=== PATIENT | male | born 1955 | race Caucasian/White ===

== ENCOUNTER 2018-11-16 12:27 | Inpatient (IN) | payer BC ==
--- NOTE | 2018-11-12 16:11 | HP ---
AMENDED REPORT TO CORRECT ACCOUNT CC: Dr. Abbott; Dr. Liza Thomas; Dr. Mao * PREOPERATIVE HISTORY AND PHYSICAL: ACTUAL DATE OF ADMISSION: 11/16/18 DATE OF ADMISSION/SURGERY: 11/12/18 This patient is scheduled for AA admission by Dr. Drummond on Thursday, . ATTENDING SURGEON: Dr. Bogdan Drummond.* (DICTATED BY AVINASH LEARY NP) CHIEF COMPLAINT: Enlarged spleen. HISTORY OF PRESENT ILLNESS: The patient is a 63-year-old male recently evaluated by Dr. Drummond for splenectomy. One year ago, he was noted to have mild leukopenia and thrombocytopenia and was referred to [facility] and had a bone marrow biopsy which was normal. On routine followup blood work this year, he was found to have worsening counts with white blood cell count of 1.0 and was referred to [facility] again by Dr. Abbott who was his primary care provider and the physician's information assistant at [facility], [place], noted a palpable spleen. A CT of the abdomen and pelvis revealed splenomegaly with no lymphadenopathy. He denies any abdominal pain or fevers or chills or fatigue. His weight has been stable and he denies night sweats. Splenectomy has been advised by Dr. Thomas as diagnostic and therapeutic. Dr. Drummond examined the patient and notes a nontender palpable spleen 6 to 8 cm below the costal margin. Dr. Drummond discussed the findings with the patient and the recommendation for laparoscopic possible open splenectomy. Dr. Drummond discussed the nature of the surgical procedure, the relevant risks, benefits, and alternatives and reviewed the relevant anatomy. Today, I reviewed the typical postoperative care and recovery. The patient has had a chance to ask questions and stated that he understands the information and is satisfied with the answers given to his questions. He will sign surgical consent on the day of surgery. PAST MEDICAL HISTORY: Significant for neutropenia and thrombocytopenia; splenomegaly; hypertension; and hyperlipidemia. PAST SURGICAL HISTORY: Limited to bone marrow biopsies. MEDICATIONS: 1. Atorvastatin 20 mg p.o. daily. 2. Quinapril 40 mg p.o. daily. 3. Hydrochlorothiazide 12.5 mg p.o. daily. 4. Vitamin D3 1000 units daily. 5. Vitamin B complex 1 tablet daily. ALLERGIES: Fish causes anaphylaxis. FAMILY HISTORY: No known anesthesia complications, bleeding tendencies, or clotting disorders. Father due to Alzheimer's disease. Mother due to heart condition. SOCIAL HISTORY: He is and self employed in construction; he has never been a smoker. He occasionally consumes alcohol and denies the use of other substances. REVIEW OF SYSTEMS: Constitutional: No fevers, chills, night sweats, excessive fatigue, or weight loss. Endocrine: No diabetes or thyroid disease. Hematologic : No easy bruising or bleeding. No history of blood transfusions. Respiratory : No dyspnea on exertion. No chronic cough. Cardiovascular: No anginal chest pain or palpitations. Gastrointestinal: No nausea, vomiting, diarrhea, GI bleeding, or constipation. No change in bowel habits. Genitourinary: No dysuria. Musculoskeletal: No chronic back or joint pain. Integumentary: No chronic rashes or skin changes. Neurologic: No headache or blurred vision. No areas of focal weakness or numbness. General: No history of deep vein thrombosis or pulmonary embolism. No previous anesthesia complications. He did have a MRSA infection of the left thigh and underwent incision and drainage and then hospitalization for intravenous antibiotics about 10 years ago in [place], and it was thought the infection was related to a spider bite. PHYSICAL EXAMINATION GENERAL SURVEY: The patient is a 63-year-old male, well developed, well nourished, in no acute distress. VITAL SIGNS: Height 74 inches, weight 193 pounds, body mass index 24.8. Blood pressure 140/72, pulse 76 and regular, respiratory rate 16, temperature 96.5 tympanic. HEENT: Benign. NECK: Supple. No cervical lymphadenopathy. No supraclavicular lymphadenopathy. LUNGS: Breath sounds bilaterally clear and equal. HEART: Regular rate and rhythm. No murmurs or rubs appreciated. ABDOMEN: Active bowel sounds. Soft and nondistended. No surgical scars. Palpable nontender spleen, 6 to 8 cm below the costal margin. No other palpable masses. No hepatomegaly. No ventral hernias. GENITALIA: Exam deferred. RECTAL: Exam deferred. EXTREMITIES: Warm without edema or skin ulceration. BACK: No CVA tenderness. NEUROLOGIC: Alert and oriented x3. Steady gait. SKIN: Warm, dry, intact. IMPRESSION: Neutropenic, splenomegaly. PLAN: AA admission to Dr. Drummond' service on 11/17/18, for laparoscopic possible open splenectomy. He completed preoperative immunization through [facility] and he will have preoperative splenic embolization with Dr. Mao on the day before surgery. AVINASH LEARY, [employer] SERVICE OFFICER [id number]/[facility] #: [id number] MADIHA
[~2018-11-16 12:27] MED LIST: ceFAZolin 1 GM ADVAN(*) 1 GM in NS 0.9% 50 ML* 50 ML IVPB ONE
[2018-11-16] MEDS ORDERED: Ondansetron INJ* 2 MG/ML VIAL ONE (13:11)
[2018-11-16] MEDS ORDERED: Scopolamine 1.5 mg* PATCH ONE (13:11)
[2018-11-16] MEDS ORDERED: LORazepam TAB(*) 1 MG ONE (13:12)
[2018-11-16] MEDS ORDERED: Naloxone* 0.4 MG/ML 1 ML VIAL ONE (13:49)
[2018-11-16] MEDS ORDERED: Heparin(*) 1000 UNIT/ML 10 ML VIAL CATH LAB IV ONE (13:49)
[2018-11-16] MEDS ORDERED: Flumazenil* 0.1 MG/ML 5 ML MDV ONE (13:49)
[2018-11-16] MEDS ORDERED: fentaNYL* 50 MCG/ML 2 ML VIAL (100 MCG VIAL) ONE ×2 (13:49→15:03)
[2018-11-16] MEDS ORDERED: Lidocaine 1% INJ* 10 MG/ML 30 ML SDV ONE (13:49)
[2018-11-16] MEDS ORDERED: Midazolam* 1 MG/ML 5 ML VIAL (5 MG) ONE (13:49)
[2018-11-16] MEDS ORDERED: Heparin 2 UNITS/ML IVPREMIX* 2,000 UNIT/1,000 ML BAG IV ONE (13:50)
[2018-11-16] MEDS ORDERED: Iohexol 350 (CONTRAST) 200 ML MDV IV ONE (14:15)
[2018-11-16] MEDS ORDERED: Naloxone* 0.4 MG/ML 1 ML VIAL IV PUSH PRN (15:22)
[2018-11-16] MEDS ORDERED: HYDROmorphone PCA* 20 MG/20 ML PCA.SYRING PCA SCH ×2 (15:30→18:38)
[2018-11-16] MEDS ORDERED: Ketorolac INJ* 30 MG/ML 1 ML VIAL ONE (15:52)
[2018-11-16] MEDS ORDERED: Acetaminophen TAB* 325 MG PO PRN (17:43)
[2018-11-16] MEDS ORDERED: Metoprolol Tartrate IV* 1 MG/ML 5 ML VIAL IV PRN (17:57)
[2018-11-16] MEDS: Lisinopril TAB* 10 MG PO SCH (18:17)
--- NOTE | 2018-11-16 18:36 | PN ---
Progress Note - Progress Note Date of Service: 11/16/18 SOAP: Subjective: Patient denies pain or nausea. Complains of "hunger pains" in his left abdomen. Objective: Selected Entries 11/16/18 11/16/18 11/16/18 18:00 18:01 18:15 Pulse Rate 71 Heart Rate 69 Respiratory 16 Rate Blood Pressure 181/101 (mmHg) Blood Pressure 111 Mean O2 Sat by Pulse 98 Oximetry NAD, AAO x 3 Abdomen is soft, NT Palpable lower spleen, mild tenderness with compression Right groin is soft, nontender Dressing is CDI 2+ pulses palpable at right MOLDING ENGINEER, pop and DPA Right leg neuromuscular function is grossly intact Assessment: 63 YOM status post abdominal arteriography and Gel Foam embolization of the splenic arteries in preparation for splenectomy tomorrow. Pain and nausea well controlled. Plan: 1. Standard Interventional Radiology post embolization regimen as ordered. 2. No bedrest necessary after successful deployment of percutaneous arterial closure device. 3. Regular diet. 4. Continue IVF, NS 0.9% 175 mL/hr overnight.
[2018-11-16] MEDS ORDERED: Buffered Lidocaine 1% SYRIN* 1 ML/SYRINGE INTRADERM ONE (23:25)
[2018-11-16] MEDS: NS 0.9% 1000 ML** 1,000 ML IV SCH (23:40)
[2018-11-17] MEDS: NS 0.9% 1000 ML** 1,000 ML IV SCH ×2 (05:16→12:18)
[2018-11-17] MEDS ORDERED: Famotidine IV* 10 MG/ML 2 ML (20 mg) IV ONE (06:00)
[2018-11-17] MEDS ORDERED: Dexamethasone TAB* 4 MG PO ONE (06:00)
[2018-11-17 07:41] LABS: Hematocrit 37 % (42-52); Hemoglobin 12.5 g/dl (14.0-18.0); Mean Corpuscular HGB Conc 34 g/dl (31-36); Mean Corpuscular Hemoglobin 27 pg (27-31); Mean Corpuscular Volume 79 fL (80-94); Mean Platelet Volume 8.5 fL (7.4-10.4); Platelet Count 144 10^3/ul (150-450); Red Blood Count 4.64 10^6/ul (4.00-5.40); Red Cell Distribution Width 16 % (10.5-15); White Blood Count 4.6 10^3/ul (3.5-10.8)
[2018-11-17 08:33] LABS: ABS Basophils 0 10^3/ul (0-0.2); ABS Eosinophils 0 10^3/ul (0-0.6); ABS Lymphocytes 0.3 10^3/ul (1.0-4.8); ABS Monocytes 1.8 10^3/ul (0-0.8); ABS Neutrophils 2.5 10^3/ul (1.5-7.7); ABS Nucleated RBC 0 10^3/ul; Eosinophil % 0 %; Large Platelets Present; Nucleated Red Blood Cells % 0.8
--- NOTE | 2018-11-17 09:12 | PN ---
Progress Note - Progress Note Date of Service: 11/17/18 SOAP: Subjective: Patient with 2/10 left upper abdominal pain. Episodes of nausea without emesis. Objective: Selected Entries 11/17/18 11/17/18 07:57 08:00 Temperature 98.2 F Temperature Oral Source Pulse Rate 68 Respiratory 14 Rate Blood Pressure 128/68 (mmHg) Blood Pressure 83 Mean O2 Sat by Pulse 100 Oximetry Patient on Room Yes Air NAD, AAO x 3 Abdomen is soft +Tender to palpation over spleen Right groin is soft, nontender Dressing is CDI 2+ right customs agent pulse Assessment: 63 YOM POD #1 GelFoam splenic artery embolization prior to planned splenectomy today. Plan: 1. Patient to OR with Dr. Drummond for splenectomy to be followed with surgical management. 2. No further IR specific follow up other than right groin check.
[2018-11-17] MEDS: Lisinopril TAB* 10 MG PO SCH (09:20)
[2018-11-17] MEDS ORDERED: Ondansetron ODT TAB* 4 MG ONE (12:24)
[2018-11-17] MEDS ORDERED: Famotidine IV* 10 MG/ML 2 ML (20 mg) ONE (12:24)
[2018-11-17] MEDS ORDERED: ceFAZolin 2 GM PREMIX in ORs 2 GM/50 ML BAG IVPB ONE (12:25)
[2018-11-17] MEDS ORDERED: Dexamethasone TAB* 4 MG ONE (12:25)
[2018-11-17] MEDS: Ondansetron TAB* 4 MG PO ONE (12:28)
[2018-11-17] MEDS ORDERED: Atracurium* 10 MG/ML 10 ML VIAL ONE (12:49)
[2018-11-17] MEDS ORDERED: fentaNYL* 50 MCG/ML 5 ML VIAL (250 MCG VIAL) ONE ×2 (12:49→14:03)
[2018-11-17] MEDS ORDERED: KETAMINE HCL* 50 MG/ML 10 ML VIAL ONE (12:50)
[2018-11-17] MEDS ORDERED: Midazolam* 1 MG/ML 5 ML VIAL (5 MG) ONE ×2 (12:50→14:03)
[2018-11-17] MEDS ORDERED: Ondansetron INJ* 2 MG/ML VIAL ONE (14:03)
[2018-11-17] MEDS ORDERED: Dexamethasone IV* 4 MG/ML 1 ML (4 MG) ONE (14:03)
[2018-11-17] MEDS ORDERED: Lidocaine 2% PF * 5 ML VIAL ONE (14:03)
[2018-11-17] MEDS ORDERED: Rocuronium* 10 MG/ML VIAL ONE (14:03)
[2018-11-17] MEDS ORDERED: Propofol* 10 MG/ML 20 ML BTL ONE (14:03)
[2018-11-17] MEDS ORDERED: Bupivacaine 0.25% W/EPI* 10 ML SDV ONE (14:04)
[2018-11-17] MEDS ORDERED: Bupivacaine 0.5% W/EPI SDV* 30 ML VIAL ONE (14:46)
[2018-11-17] MEDS ORDERED: fentaNYL* 50 MCG/ML 2 ML VIAL (100 MCG VIAL) IV PRN (15:25)
[2018-11-17] MEDS ORDERED: Ondansetron INJ* 2 MG/ML VIAL IV PRN (15:25)
[2018-11-17] MEDS ORDERED: HYDROmorphone INJ1* 1 MG/ML SYRINGE IV PRN (15:25)
[2018-11-17] MEDS ORDERED: Naloxone* 0.4 MG/ML 1 ML VIAL IV PRN (15:25)
--- NOTE | 2018-11-17 17:55 | BRIEFOPN ---
Brief Operative Note - Surgery Procedures: PREOP/POSTOP DX: SPLENOMEGALY PROC: LAPAROSCOPIC SPLENECTOMY WITH HAND ASSIST SURG: MECENAS ASSIST: IVAN; JOSÉ LUIS ANES: GET; TOAL EBL: <50ML IVF: 3.6 L CRYST SPEC: SPLEEN AND SPLENULES DRAINS: NONE COMPL: NONE COND: STABLE TO RR; EXTUBATED.
--- NOTE | 2018-11-17 20:43 | OP ---
AMENDED REPORT TO CORRECT ACCOUNT CC: Epifanio Abbott MD; Liza Thomas MD; Rajesh Mao MD * DATE OF OPERATION: 11/17/18 - ROOM #346 DATE OF : 57 SURGEON: Bogdan Drummond MD FAST FOOD DELIVERY DRIVER: Dr. Vazquez and Dr. Velazquez. ANESTHESIOLOGIST: Dr. Mathew ANESTHESIA: General endotracheal. PRE-OP DIAGNOSIS: Neutropenic splenomegaly. POST-OP DIAGNOSIS: Neutropenic splenomegaly. OPERATIVE PROCEDURE: Laparoscopic splenectomy. ESTIMATED BLOOD LOSS: Less than 50 mL. IV FLUIDS: 3.6 L of crystalloid. SPECIMENS: Spleen and splenules. DRAINS: None. COMPLICATIONS: None. COUNTS: The instrument, needle, and sponge counts were correct. DESCRIPTION OF PROCEDURE: The patient was brought to the operating room, placed on the table supine. Sequential compression devices were placed on both lower extremities. General anesthesia was administered. Woody catheter was placed. He was positioned and padded appropriately in a slight right decubitus using a beanbag and airplaning the left arm. He was prepped and draped in the usual sterile fashion. He received appropriate intravenous antibiotics. A time -out was performed. Local anesthetic was infiltrated into the skin and soft tissue prior to each incision. Entry to the abdomen was through a upper midline incision using an open technique to access peritoneal cavity. A 12-mm blunt port was placed and carbon dioxide was insufflated to a pressure of 15 mmHg. A large infarcted looking spleen was encountered. Under direct visualization, additional 5 mm trocars were placed in the subxiphoid position and 2 in the left upper quadrant. The mobilization proceeded with opening the gastrosplenic ligament dividing these attachments and the short gastric vessels completely with the LigaSure. Subsequently, the splenic artery was noted to be prominent, tortuous and this was able to be dissected out bluntly and then it was divided using the endo-ADAM stapler with a 30 mm fulton cartridge. Posterior to this, the splenic vein was identified. This was also dissected out bluntly and this was divided using the LigaSure. Subsequently, additional attachments to the hilum were divided. The inspection of the lower pole of the spleen revealed additional feeding vessels in this area. Below the spleen in the omentum were 2 splenules. The LigaSure was used to ligate the remaining vessels to the spleen and once the spleen was completely devascularized the hand port was placed in the left upper quadrant. With hand assistance the remaining attachments to the spleen posteriorly were divided with the LigaSure until the spleen was free completely. The spleen was then placed into a large retrieval bag and this was then brought out through the hand port. The spleen was morcellated and submitted, fresh, to Pathology. The 2 splenules within the omentum were then drawn up into the wound and these were excised with LigaSure and again submitted to Pathology. Subsequently, the GelPort was reattached. Pneumoperitoneum was reestablished and inspection of the areas of dissection was performed revealing excellent hemostasis. Irrigation was performed until clear. All the ports were removed under direct visualization and the carbon dioxide was released. The left upper quadrant incision was closed in separate layers as there had been a muscle splitting incision with partial division of the rectus muscle. The peritoneum was closed separately as well as the anterior and posterior rectus sheaths. The subcutaneous tissues were irrigated and closed with 3-0 Vicryl interrupted. Skin incisions were all closed with josé. Dressings were applied to the incisions. The patient tolerated the procedure well. He was extubated uneventfully, transferred to the recovery room in a stable condition. [id number]/[facility] #: [id number] [facility] CENTERLauren
[2018-11-17] MEDS: Lactated Ringers 1000 ML Bag* 1,000 ML IV SCH (23:02)
[2018-11-18] MEDS: Ondansetron TAB* 4 MG PO ONE (04:45)
[2018-11-18] MEDS: Lactated Ringers 1000 ML Bag* 1,000 ML IV SCH ×3 (07:24→23:28)
[2018-11-18] MEDS ORDERED: oxyCODONE TAB* 5 MG TAB PO PRN ×2 (07:56)
--- NOTE | 2018-11-18 08:01 | PN ---
Progress Note - Progress Note Date of Service: 11/18/18 SOAP: Subjective: Pt feels well. Pain is controlled. No N/V. Denies flatus. Discussed surgical findings. Objective: Vital Signs Temp 98.1 F 11/18/18 07:48 Pulse 77 11/18/18 07:48 Resp 18 11/18/18 07:52 BP 130/66 11/18/18 07:48 Pulse Ox 99 11/18/18 07:48 Gen: NAD Abd: dressings c/d/i; ND; soft; mild LUQ tenderness. Intake & Output 11/17/18 11/18/18 11/18/18 18:59 06:59 18:59 Intake Total 3600 1200 1154 Output Total 750 2775 Balance 2850 -1575 1154 Intake: IV Fluids 3600 1154 LR 3600 1154 Oral 1200 Output: Urine 300 400 Cho 400 2375 Residual 50 Cho 16 Fr 50 Other: Estimated Void Small # Voids 1 Assessment: POD#1 s/p lap splenectomy. Doing well. Plan: D/c cho. Po pain meds. Adv diet. Ambulate/pulm toilet. Home likely tomorrow.
[2018-11-18] MEDS: Lisinopril TAB* 10 MG PO SCH (09:13)
[2018-11-18] MEDS: Vitamin B Complex TAB PO SCH (09:39)
[2018-11-18] MEDS ORDERED: Atorvastatin* 20 MG TAB PO SCH (21:00)
[2018-11-19 07:47] VITALS: BP 151/79
[2018-11-19] MEDS: Lactated Ringers 1000 ML Bag* 1,000 ML IV SCH (07:53)
[2018-11-19] MEDS: Vitamin B Complex TAB PO SCH (07:54)
[2018-11-19] MEDS: Lisinopril TAB* 10 MG PO SCH (07:54)
--- NOTE | 2018-11-19 08:44 | PN ---
Progress Note - Progress Note Date of Service: 11/19/18 SOAP: Subjective: Pt reports minimal pain. Tolerating diet with +flatus. No N/V. Objective: Vital Signs Temp 97.4 F 11/19/18 07:45 Pulse 85 11/19/18 07:45 Resp 18 11/19/18 07:45 BP 151/79 11/19/18 07:45 Pulse Ox 100 11/19/18 07:45 Gen: NAD Abd: incisions c/d/i; no erythema; soft; ND; min tender. Intake & Output 11/18/18 11/19/18 11/19/18 18:59 06:59 18:59 Intake Total 3310 1590 Output Total 800 2230 325 Balance 2510 -640 -325 Intake: IV Fluids 2150 990 LR 2150 990 Oral 1160 600 Output: Urine 350 2230 325 Woody 450 Other: Estimated Void Medium # Voids 1 Assessment: POD#2 s/p Lap splenectomy. Doing well. Plan: Home today. RTO 1 week for josé. F/u [facility] next week for labs and path review.
--- NOTE | 2018-11-19 09:03 | PN ---
Progress Note - Progress Note Date of Service: 11/19/18 SOAP: Subjective: No pain complaints other than feeling "bloated". No nausea. +Diet. +Flatus. Ambulating independently. Objective: Selected Entries 11/19/18 07:45 Temperature 97.4 F Temperature Oral Source Pulse Rate 85 Respiratory 18 Rate Blood Pressure 151/79 (mmHg) Blood Pressure 98 Mean O2 Sat by Pulse 100 Oximetry Patient on Room Yes Air Abdomen is soft, appropriatley tender over surgical sites. Right groin is soft, nontender Dressing over right CF arteriotomy is C/D/I 2+ pulses in RLE Assessment: 63 YOM POD #2 s/p laparoscopic splenectomy and POD #3 splenic artery embolization. Plan: 1. Appears to be recovering well- D/C and dispo will be managed by surgery. 2. As discussed with patient, no specific IR follow up is necessary, but Rich is encouraged to call the IR clinic with any issues or questions.
--- NOTE | 2018-11-19 09:53 | PN ---
Progress Note - Progress Note Date of Service: 11/19/18 SOAP: Subjective: [POD #2 s/p splenectomy. Patient reports that he is feeling well and anticipates discharge today.] Objective: [ Vital Signs: Temp Pulse Resp BP Pulse Ox 97.4 F 85 18 151/79 100 11/19/18 07:45 11/19/18 07:45 11/19/18 07:45 11/19/18 07:45 11/19/18 07:45 Acetaminophen (Tylenol Tab*) 650 mg PO Q4H PRN PRN Reason: mild pain or fever Atorvastatin Calcium (Lipitor*) 20 mg PO BEDTIME [facility] Last Admin: 11/18/18 21:27 Dose: 20 mg Lactated Ringer's (Lactated Ringers 1000 Ml Bag*) 1,000 mls @ 125 mls/hr IV PER RATE [facility] Last Admin: 11/19/18 07:53 Dose: 125 mls/hr Lisinopril (Prinivil Tab*) 40 mg PO QAM [facility] Last Admin: 11/19/18 07:54 Dose: 40 mg Metoprolol Tartrate (Lopressor Iv*) 5 mg IV Q6H PRN PRN Reason: sys BP > 150 or justen BP > 100 Oxycodone HCl (Roxycodone Tab*) 5 mg PO Q4H PRN PRN Reason: PAIN - MODERATE TO SEVERE Last Admin: 11/18/18 09:13 Dose: 5 mg Oxycodone HCl (Roxycodone Tab*) 10 mg PO Q4H PRN PRN Reason: PAIN - SEVERE Vitamin B Complex/Vitamin E (B Complex-50*) 1 tab PO [facility] Last Admin: 11/19/18 07:54 Dose: 1 tab Exam: Gen: well appearing 63 yo male in NAD HEENT: MMM Abd: surgical incisions with josé in place, no erythema or drainage] Assessment: [63 yo male with marked neutropenia and splenomegaly s/p splenectomy. Pathology is still pending, but splenic lymphoma is at the top of the differential. Noted complete resolution of neutropenia post splenectomy, Hgb remains stable and platelets appear to be recovering.] Plan: [1. s/p splenectomy - discharge per surgery team - recommend patient has an emergency supply of abx in the event he develops a fever at home per post splenectomy recommendations - Rx written for Augmentin and recommendations were reviewed with the patient today - received preoperative vaccination 2. Neutropenia/thrombocytopenia - resolved - pathology pending Dispo: discharge per surgery. Follow up with Dr Thomas 11/25 at 1550 with plans to review pathology and further treatment plan at that time]
[2018-11-29 13:10] LABS: BCGRV Specimen SPLEEN
== END 2018-11-19 10:40 | disposition home or self-care (01) | DRG 650 ==
LOC: CHICATH 12:27 → SSU 18:46
PROVIDERS: ADMIT Surgery; ATTEND Surgery
PROC: 04V Lower Arteries, Restriction (ICD-10-PCS; 2018-11-16)
PROC: 07TP4ZZ Resection of Spleen, Percutaneous Endoscopic Approach (ICD-10-PCS; principal; 2018-11-16 13:00)
DX: D73.81 Neutropenic splenomegaly (principal); I10 Essential (primary) hypertension; M19.90 Unspecified osteoarthritis, unspecified site; E78.00 Pure hypercholesterolemia, unspecified; E78.5 Hyperlipidemia, unspecified; Z91.013 Allergy to seafood; Z82.49 Family history of ischemic heart disease and other diseases of the circulatory system; Z81.8 Family history of other mental and behavioral disorders; Z72.89 Other problems related to lifestyle; D69.6 Thrombocytopenia, unspecified; R11.0 Nausea
CPT/HCPCS: 36415; 37243; 76937; 81261; 81264; 85025; 88184; 88187; 88188; 88189; 88305; 88341; 88342; 88364; 88365; 99156; 99157; 99232; A9270-GY; C1760; C1769; C1887; J0690; J1100; J1170; J1644; J1885; J2250; J2310; J2405; J2704; J2710; J2765; J3010; J8540